=== PATIENT | male | born 1940 | race Two or more races ===

== ENCOUNTER 2025-07-25 15:25 | Inpatient (IN) | payer OTHER, MEDICAID ==
[~2025-07-25] VITALS: Ht 172.7 cm; Wt 53.5 kg
[2025-07-25 16:21] LABS: Hematocrit 37.4 % (41.0-53.0); Hemoglobin 13.1 g/dL (13.5-17.5); Mean Corpuscular Hemoglobin 34.2 pg (28.0-32.0); Mean Corpuscular Volume 97.6 fL (80.0-100.0); Nucleated Red Blood Cells % 0.1 %
[2025-07-25 16:26] LABS: Carbon Dioxide 30 mmol/L (20-31)
[2025-07-25 16:30] VITALS: PULSE 87; RESP 16; O2SAT 93
[2025-07-25 16:31] LABS: BUN/Creatinine Ratio 8.7 (10.0-20.0); Blood Urea Nitrogen 9 mg/dL (9-23); Glucose 103 mg/dL (74-106)
[2025-07-25 16:35] LABS: Anion Gap 5 (5-15); Calcium 8.7 mg/dL (8.7-10.4); Chloride 98 mmol/L (98-107); Potassium 3.5 mmol/L (3.5-5.1); Sodium 133 mmol/L (136-145)
--- NOTE | 2025-07-25 17:02 | DVH ---
CHEST RADIOGRAPH Indication: sob Technique: Single frontal view of the chest was obtained Comparison: None FINDINGS: Lines and Tubes: None Lungs: Consolidation in the right base may represent atelectasis or infiltrate. Pleura: No effusion. No pneumothorax. Cardiomediastinal contours: Unremarkable Bones: No acute osseous abnormality. IMPRESSION: 1. Consolidation right lower lobe may represent infiltrate or atelectasis. Suggest follow-up.
[2025-07-25] MEDS: SODIUM CHLORIDE 0.9% 1,000 ML IV ONE ×2 (18:04→20:14)
[2025-07-25] MEDS: VANCOMYCIN 1GM/250ML KIT 250 ML IV ONE (18:24)
--- NOTE | 2025-07-25 18:26 | ED.PDOC ---
History of Present Illness HPI Comments 85-year-old male is brought in by ambulance for chief complaint of shortness a breath x1 week. Denies any chest pain, cough, congestion, or further acute symptoms. Chief Complaint: Shortness of Breath Time Seen by MD: 15:50 Reviewed Notes: Nurses Notes, Detacher Notes, Medications, Allergies Allergies: Coded Allergies: NO KNOWN ALLERGIES (Unverified , 07/25/25) Information Source: Patient, Emergency Med Personnel Mode of Arrival: EMS Severity: Moderate Timing: Weeks Duration: Since onset Prehospital treatment: None Past Medical History PAST MEDICAL HISTORY: Cancer (Skin cancer), COPD, High Lipids Surgical History: Denies all surgeries Social History Smoker: Non-Smoker Alcohol: Denies ETOH Use Drugs: Denies Drug Use Lives In: Home All Other Systems: Reviewed and Negative (Comprehensive review of systems are negative unless otherwise stated in HPI) Physical Exam General Appearance: No Apparent Distress, Normal HEENT: Normal ENT Inspection, Pharynx Normal, TMs Normal Neck: Full Range of Motion, Non-Tender, Normal, Normal Inspection Respiratory: Chest Non-Tender, No Accessory Muscle Use, No Respiratory Distress, Other (Coarse breath sounds, crackles bilaterally) Cardiovascular: No Edema, No JVD, No Murmur, No Gallop, Normal Peripheral Pulses, Regular Rate/Rhythm Breast Exam: Deferred Gastrointestinal: No Organomegaly, Non Tender, No Pulsatile Mass, Normal Bowel Sounds, Soft Genitalia: Deferred Pelvic: Deferred Rectal: Deferred Extremities: No calf tenderness, Normal capillary refill, Normal inspection, Normal range of motion, Non-tender, No pedal edema Musculoskeletal : Apperance: Normal Neurologic: Alert, project management intern II-XII nml as Tested, No Motor Deficits, Normal Affect, Normal Mood, No Sensory Deficits Cerebellar Function: Normal Reflexes: Normal Skin: Dry, Normal Color, Warm Lymphatic: No Adenopathy Was a procedure done? Was a procedure done?: No Differential Dx Considerations may include: Acute COPD exacerbation, URI, pneumonia, viral, MA, PE, among others X-Ray, Labs, Meds, VS Vital Signs Date Time Temp Pulse Resp B/P (MAP) Pulse Ox O2 Delivery O2 Flow Rate FiO2 07/25/25 19:30 98.9 100 23 127/66 (86) 91 98.9 07/25/25 16:30 99.5 87 16 122/72 (89) 93 99.5 07/25/25 16:30 87 16 93 Nasal Cannula* 3 32 07/25/25 16:10 97.5 102 26 105/68 97 97.5 Lab Test 07/25/25 19:06 07/25/25 17:55 07/25/25 17:05 07/25/25 16:02 Range/Units Troponin I High Sensitivity 17 18 19 </=54 ng/L Lactic Acid Level 1.3 0.4-2.0 mmol/L White Blood Count 9.4 4.4-10.8 10^3/uL Red Blood Count 3.83 L 4.5-5.90 10^6/uL Hemoglobin 13.1 L 13.5-17.5 g/dL Hematocrit 37.4 L 41.0-53.0 % Mean Corpuscular Volume 97.6 80.0-100.0 fL Mean Corpuscular Hemoglobin 34.2 H 28.0-32.0 pg Mean Corpuscular Hemoglobin Concent 35.1 32.0-36.0 g/dL Red Cell Distribution Width 14.4 H 11.8-14.3 % Platelet Count 248 140-450 10^3/uL Mean Platelet Volume 8.0 6.9-10.8 fL Neutrophils (%) (Auto) 83.9 H 37.0-80.0 % Lymphocytes (%) (Auto) 6.7 L 10.0-50.0 % Monocytes (%) (Auto) 8.7 0.0-12.0 % Eosinophils (%) (Auto) 0.2 0.0-7.0 % Basophils (%) (Auto) 0.5 0.0-2.0 % Neutrophils # (Auto) 7.9 1.6-8.6 10 ^3/uL Lymphocytes # (Auto) 0.6 0.4-5.4 10 ^3/uL Monocytes # (Auto) 0.8 0-1.3 10 ^3/uL Eosinophils # (Auto) 0 0-0.8 10 ^3/uL Basophils # (Auto) 0 0-0.2 10 ^3/uL Nucleated Red Blood Cells 0.1 % Sodium Level 133 L 136-145 mmol/L Potassium Level 3.5 3.5-5.1 mmol/L Chloride Level 98 98-107 mmol/L Carbon Dioxide Level 30 20-31 mmol/L Anion Gap 5 5-15 Blood Urea Nitrogen 9 9-23 mg/dL Creatinine 1.03 0.700-1.30 mg/dL Glomerular Filtration Rate Calc 71 >90 mL/min BUN/Creatinine Ratio 8.7 L 10.0-20.0 Serum Glucose 103 74-106 mg/dL Calcium Level 8.7 8.7-10.4 mg/dL B-Type Natriuretic Peptide 134.75 0-100 pg/mL Current Medications Medications (Trade) Dose Ordered Sig/Kristina Route Start Time Stop Time Status Last Admin Sodium Chloride 1,000 ml @ 1,000 mls/hr Q1H ONCE IV 07/25/25 17:45 07/25/25 18:44 DC 07/25/25 18:04 Cefepime HCl 50 ml @ 12.5 mls/hr ONCE ONCE IV 07/25/25 17:45 07/25/25 21:44 07/25/25 20:14 Vancomycin HCl 250 ml @ 250 mls/hr ONCE ONCE IV 07/25/25 17:45 07/25/25 18:44 DC 07/25/25 18:24 Sodium Chloride 1,000 ml @ 60 mls/hr [id number] IV 07/25/25 19:45 07/25/25 20:25 Acetaminophen/ Hydrocodone Bitart (Casselberry 5/325MG Tab) 1 tab Q4HP PRN PO 07/25/25 19:45 07/25/25 20:31 Time of 1ST Reevaluation: 16:20 Reevaluation 1ST: Unchanged Patient Education/Counseling: Diagnosis, Treatment Family Education/Counseling: No Family Present Additional Information Additional historians: EMS personnel Previous medical visits reviewed: None Additional imaging and studies ordered and reviewed: EKG, chest x-ray Labs ordered and reviewed: Blood culture, lactic acid reflux, EKG, troponin, BNP, CBC, BMP SEPSIS Sepsis Screen Date sepsis recognized/suspect: Jul 25, 2025 Time Sepsis recognized/suspect: 153 Recent Procedure: No On Antibiotic Therapy: No Respiratory Rate >20: Yes Heart Rate >90: Yes Temp<36 C (96.8 F) or >38.3 C: No SBP <90 or MAP <65 mmHG: No New Acute Mental Status Change: No Is the patient on CPAP, BIPAP,: No Physician Orders Chest Portable (07/25/25 15:53) Electrocardigram (07/25/25 15:53) Electrocardigram (07/25/25 16:53) Electrocardigram (07/25/25 18:53) Blood Culture (07/25/25 17:39) Cefepime 2gm/50ml Ns (Maxipime 2gm/50ml) (07/25/25 17:45) Amlodipine Tablet (Norvasc Tablet) (07/26/25 10:00) Tamsulosin Hydrochloride (Flomax) (07/26/25 18:00) Duloxetine Hcl Capsule (Cymbalta Capsule (07/26/25 10:00) Atorvastatin (Lipitor) (07/25/25 22:00) Azithromycin 500mg/ 250ml (Zithromax 50 (07/26/25 10:00) Allergies (07/25/25 19:40) Code Status (07/25/25 19:40) Sodium Chloride 0.9% (07/25/25 19:45) Oxygen Per Hour (07/25/25 19:40) Hydrocodone-Acet 5/325mg Tab (Casselberry 5/32 (07/25/25 19:45) Ondansetron Hcl (Zofran) (07/25/25 19:45) Docusate Sodium Capsule (Colace Capsule) (07/25/25 19:45) Fall Risk Precautions In Place QSHIFT (07/25/25 19:40) Complete Blood Count (07/26/25 04:00) Comprehensive Metabolic Panel (07/26/25 04:00) Cardiac Diet-2gna,Lofat,Lochol (07/26/25 Breakfast) Condition: Serious (07/25/25 19:40) Acetaminophen Tablet (Tylenol Tablet) (07/25/25 19:45) Maintain Bed Rest (07/25/25 19:40) Sequential Compression Device (07/25/25 ) Vital Signs Date Time Temp Pulse Resp B/P (MAP) Pulse Ox O2 Delivery O2 Flow Rate FiO2 07/25/25 19:30 98.9 100 23 127/66 (86) 91 98.9 07/25/25 16:30 99.5 87 16 122/72 (89) 93 99.5 07/25/25 16:30 87 16 93 Nasal Cannula* 3 32 07/25/25 16:10 97.5 102 26 105/68 97 97.5 Laboratory Tests Test 07/25/25 16:02 07/25/25 17:55 White Blood Count 9.4 10^3/uL (4.4-10.8) Lactic Acid Level 1.3 mmol/L (0.4-2.0) Medications Medications Dose Ordered Sig/Kristina Route Start Time Stop Time Status Last Admin Dose Admin Acetaminophen/ Hydrocodone Bitart 1 tab Q4HP PRN PO 07/25/25 19:45 07/25/25 20:31 Cefepime HCl 50 ml @ 12.5 mls/hr ONCE ONCE IV 07/25/25 17:45 07/25/25 21:44 07/25/25 20:14 Sodium Chloride 1,000 ml @ 60 mls/hr [id number] IV 07/25/25 19:45 07/25/25 20:25 Sodium Chloride 1,000 ml @ 1,000 mls/hr Q1H ONCE IV 07/25/25 17:45 07/25/25 18:44 DC 07/25/25 18:04 Vancomycin HCl 250 ml @ 250 mls/hr ONCE ONCE IV 07/25/25 17:45 07/25/25 18:44 DC 07/25/25 18:24 Departure 1 Departure Time of Disposition: 21:27 (Patient likely with a right lower lobe pneumonia. We will empirically cover patient with antibiotics. We will not give patient has full fluid bolus SC appears mildly volume overloaded. We will admit patient for further workup and expert consultation) Impression: Primary Impression: Right lower lobe pneumonia Additional Impressions: Acute dyspnea Suspected sepsis Disposition: ADMITTED INPATIENT Admit to: Tele Condition: Guarded Critical Care Note Critical Care Time?: Yes Critical care comment: Suspected sepsis Authorized and Performed by: Junaid Basilio MD Total critical care time: Approximately 39 minutes Due to a high probability of clinically significant, life threatening deterioration, the patient required my highest level of preparedness to intervene emergently and I personally spent this critical care time directly and personally managing the patient. This critical care time included obtaining a history; examining the patient; pulse oximetry; ordering and review of studies; arranging urgent treatment with development of a management plan; evaluation of patient's response to treatment; frequent reassessment; and, discussions with other providers. This critical care time was performed to assess and manage the high probability of imminent, life-threatening deterioration that could result in multi-organ failure. It was exclusive of separately billable procedures and treating other patients and teaching time. Please see my other sections and the rest of the note for further information on patient assessment and treatment. Stability Stability form required: No Heart Score Heart Score: Heart Score Response (Comments) Value History Moderate Suspicious 1 EKG Normal 0 Age <45 0 Risk Factors >3 or Hx ASHD 2 Troponin Normal limit 0 Total 3 I personally scribed for JUNAID BASILIO MD ([email or web address]) on 07/25/25 at 18:26. Electronically submitted by Solomon Douglass [email or web address]). JUNAID BASILIO MD Jul 25, 2025 18:26
[2025-07-25] MEDS ORDERED: DOCUSATE SOD 100 MG CAP PO PRN (19:45)
[2025-07-25] MEDS ORDERED: ONDANSETRON HCL 4 MG/2 ML VIAL IV PRN (19:45)
[2025-07-25] MEDS ORDERED: ACETAMINOPHEN 325 MG TAB PO PRN (19:45)
--- NOTE | 2025-07-25 19:47 | DVHHP2 ---
History of Present Illness Reason for Visit: COPD with acute exacerbation History of Present Illness The patient is a 85-year-old male with past medical history of skin cancer, COPD, depression, and hyperlipidemia who presented to [facility] ED with complaint of shortness of breaths for the past 1 week. Patient was seen and evaluated in the ED, laboratory data shows WBC 9.4, hemoglobin 13.1, hematocrit 37.4, platelets 248, sodium 133, potassium 3.5, BUN nine, creatinine 1.03, GFR 71, glucose 103, calcium 8.7, lactic acid 1.7, troponin 18, BNP 134.75, blood pressure 122/72, heart rate 87, temperature 99.5 F, O2 saturation 93% on oxygen. Chest x-ray revealing consolidation right lower lobe may represent infiltrate or atelectasis. Please see medication orders section in the computer. On my assessment, patient denied chest pain, no headache, dizziness, diaphoresis, currently on oxygen, no diarrhea, nausea, vomiting, fever, no chills. Patient was admitted for further evaluation and medical management. Past Medical History Cancer (Skin cancer), COPD, High Lipids Past Surgical History Denies all surgeries Family History Reviewed, noncontributory to the management of this case. Past Social History The patient lives at home, denies smoking, alcohol or illicit drugs abuse. Review of Systems Constitutional: Yes: Weakness; No: Fever, Chills, Sweats, Malaise, Other Eyes: No: Pain, Vision change, Conjunctivae inflammation, Eyelid inflammation, Other, Redness ENT: No: Ear pain, Ear discharge, Nose pain, Nose discharge, Nose congestion, Mouth pain, Mouth swelling, Throat pain, Throat swelling, Other Respiratory: Shortness of breath, Other (SOB at rest); No: Cough, Dry, SOB with excertion, Wheezing, Hemoptysis, Pleuritic Pain, Sputum, Wheezing Cardiovascular: No: Chest Pain, Palpitations, Orthopnea, Paroxysmal Noc. Dyspnea, Edema, Lt Headedness, Other Gastrointestinal: No: Nausea, Vomiting, Abdominal Pain, Diarrhea, Constipation, Melena, Hematochezia, Other Genitourinary: No Dysuria, No Frequency, No Incontinence, No Hematuria, No Retention, No Other Musculoskeletal: No: other, neck pain, shoulder pain, arm pain, back pain, hand pain, leg pain, foot pain Neurological: No: Weakness, Numbness, Incoordination, Change in speech, Confusion, Seizures, Other Allergies: Coded Allergies: NO KNOWN ALLERGIES (Unverified , 07/25/25) Medications Current Medications Medications Dose Ordered Sig/Kristina Route Start Time Stop Time Status Last Admin Dose Admin Amlodipine Besylate 5 mg DAILY PO 07/26/25 10:00 UNV Tamsulosin HCl 0.4 mg QPM PO 07/26/25 18:00 UNV Duloxetine HCl 60 mg DAILY PO 07/26/25 10:00 UNV Atorvastatin Calcium 20 mg HS PO 07/25/25 22:00 UNV Azithromycin 250 ml @ 125 mls/hr DAILY IV 07/26/25 10:00 UNV Sodium Chloride 1,000 ml @ 60 mls/hr [id number] IV 07/25/25 19:45 UNV Acetaminophen/ Hydrocodone Bitart 1 tab Q4HP PRN PO 07/25/25 19:45 UNV Ondansetron HCl 4 mg Q4HP PRN IV 07/25/25 19:45 UNV Docusate Sodium 100 mg BIDPRN PRN PO 07/25/25 19:45 UNV Acetaminophen 500 mg Q6HP PRN PO 07/25/25 19:45 UNV Exam Vital Signs Vital Signs Date Time Temp Pulse Resp B/P (MAP) Pulse Ox O2 Delivery O2 Flow Rate FiO2 07/25/25 16:30 99.5 87 16 122/72 (89) 93 99.5 07/25/25 16:30 Nasal Cannula* 3 32 General Appearance: Alert, Oriented X3, Cooperative, No acute distress HEENT: Atraumatic, PERRLA, EOMI, Mucous membr. moist/pink Respiratory: Normal air movement, Other (Diminished breath sounds) Cardiovascular: Regular rate, Normal S1, Normal S2, No murmurs Abdominal: Normal bowel sounds, Soft, No tenderness, No hepatospenomegaly, No masses Extremities: No clubbing, No cyanosis, No edema, Normal pulses, No tenderness/swelling Skin: No rashes, No significant lesion Neuro: Normal speech, Normal tone, Sensation intact, Cranial nerves 3-12 NL, Reflexes 2+, Other (Generalized weakness) Psych/Mental Status: Mental status NL, Mood NL Labs/Xrays Labs Test 07/25/25 19:06 07/25/25 17:55 07/25/25 16:02 Range/Units Lactic Acid Level 1.3 0.4-2.0 mmol/L White Blood Count 9.4 4.4-10.8 10^3/uL Red Blood Count 3.83 L 4.5-5.90 10^6/uL Hemoglobin 13.1 L 13.5-17.5 g/dL Hematocrit 37.4 L 41.0-53.0 % Mean Corpuscular Volume 97.6 80.0-100.0 fL Mean Corpuscular Hemoglobin 34.2 H 28.0-32.0 pg Mean Corpuscular Hemoglobin Concent 35.1 32.0-36.0 g/dL Red Cell Distribution Width 14.4 H 11.8-14.3 % Platelet Count 248 140-450 10^3/uL Mean Platelet Volume 8.0 6.9-10.8 fL Neutrophils (%) (Auto) 83.9 H 37.0-80.0 % Lymphocytes (%) (Auto) 6.7 L 10.0-50.0 % Monocytes (%) (Auto) 8.7 0.0-12.0 % Eosinophils (%) (Auto) 0.2 0.0-7.0 % Basophils (%) (Auto) 0.5 0.0-2.0 % Neutrophils # (Auto) 7.9 1.6-8.6 10 ^3/uL Lymphocytes # (Auto) 0.6 0.4-5.4 10 ^3/uL Monocytes # (Auto) 0.8 0-1.3 10 ^3/uL Eosinophils # (Auto) 0 0-0.8 10 ^3/uL Basophils # (Auto) 0 0-0.2 10 ^3/uL Nucleated Red Blood Cells 0.1 % Sodium Level 133 L 136-145 mmol/L Potassium Level 3.5 3.5-5.1 mmol/L Chloride Level 98 98-107 mmol/L Carbon Dioxide Level 30 20-31 mmol/L Anion Gap 5 5-15 Blood Urea Nitrogen 9 9-23 mg/dL Creatinine 1.03 0.700-1.30 mg/dL Glomerular Filtration Rate Calc 71 >90 mL/min BUN/Creatinine Ratio 8.7 L 10.0-20.0 Serum Glucose 103 74-106 mg/dL Calcium Level 8.7 8.7-10.4 mg/dL B-Type Natriuretic Peptide 134.75 0-100 pg/mL PATIENT: AUGUSTINA PENN ACCT: [id number] UNIT: [id number] : 1940 LOC: ER ROOM / BED: / AGE / SEX: 85 / M ADM STATUS: REG ER SERVICE 1553 ORDERING PHYSICIAN: JUNAID GARCIA MD PROCEDURE(s): CXRP - CHEST PORTABLE REASON: sob ORDER NUMBER(s): [id number], ACCESSION NUMBER(s): [id number] CHEST RADIOGRAPH Indication: sob Technique: Single frontal view of the chest was obtained Comparison: None FINDINGS: Lines and Tubes: None Lungs: Consolidation in the right base may represent atelectasis or infiltrate. Pleura: No effusion. No pneumothorax. Cardiomediastinal contours: Unremarkable Bones: No acute osseous abnormality. IMPRESSION: 1. Consolidation right lower lobe may represent infiltrate or atelectasis. Suggest follow-up. SEPSIS Sepsis Screen Date sepsis recognized/suspect: Jul 25, 2025 Time Sepsis recognized/suspect: 1529 Recent Procedure: No On Antibiotic Therapy: No Respiratory Rate >20: Yes Heart Rate >90: Yes Temp<36 C (96.8 F) or >38.3 C: No SBP <90 or MAP <65 mmHG: No New Acute Mental Status Change: No Is the patient on CPAP, BIPAP,: No Physician Orders Chest Portable (07/25/25 15:53) Electrocardigram (07/25/25 15:53) Troponin-I Hs (07/25/25 18:53) Electrocardigram (07/25/25 16:53) Electrocardigram (07/25/25 18:53) Blood Culture (07/25/25 17:39) Cefepime 2gm/50ml Ns (Maxipime 2gm/50ml) (07/25/25 17:45) Sodium Chloride 0.9% (07/25/25 19:15) Amlodipine Tablet (Norvasc Tablet) (07/26/25 10:00) Tamsulosin Hydrochloride (Flomax) (07/26/25 18:00) Duloxetine Hcl Capsule (Cymbalta Capsule (07/26/25 10:00) Atorvastatin (Lipitor) (07/25/25 22:00) Azithromycin 500mg/ 250ml (Zithromax 50 (07/26/25 10:00) Allergies (07/25/25 19:40) Code Status (07/25/25 19:40) Sodium Chloride 0.9% (07/25/25 19:45) Oxygen Per Hour (07/25/25 19:40) Hydrocodone-Acet 5/325mg Tab (Haskell 5/32 (07/25/25 19:45) Ondansetron Hcl (Zofran) (07/25/25 19:45) Docusate Sodium Capsule (Colace Capsule) (07/25/25 19:45) Fall Risk Precautions In Place QSHIFT (07/25/25 19:40) Complete Blood Count (07/26/25 04:00) Comprehensive Metabolic Panel (07/26/25 04:00) Cardiac Diet-2gna,Lofat,Lochol (07/26/25 Breakfast) Condition: Serious (07/25/25 19:40) Acetaminophen Tablet (Tylenol Tablet) (07/25/25 19:45) Maintain Bed Rest (07/25/25 19:40) Sequential Compression Device (07/25/25 ) Vital Signs Date Time Temp Pulse Resp B/P (MAP) Pulse Ox O2 Delivery O2 Flow Rate FiO2 07/25/25 16:30 99.5 87 16 122/72 (89) 93 99.5 07/25/25 16:30 87 16 93 Nasal Cannula* 3 32 07/25/25 16:10 97.5 102 26 105/68 97 97.5 Laboratory Tests Test 07/25/25 16:02 07/25/25 17:55 White Blood Count 9.4 10^3/uL (4.4-10.8) Lactic Acid Level 1.3 mmol/L (0.4-2.0) Medications Medications Dose Ordered Sig/Kristina Route Start Time Stop Time Status Last Admin Dose Admin Sodium Chloride 1,000 ml @ 1,000 mls/hr Q1H ONCE IV 07/25/25 17:45 07/25/25 18:44 DC 07/25/25 18:04 1,000 MLS/HR Vancomycin HCl 250 ml @ 250 mls/hr ONCE ONCE IV 07/25/25 17:45 07/25/25 18:44 DC 07/25/25 18:24 250 MLS/HR Assessment/Plan Assessment/Plan Acute respiratory distress Acute dyspnea Hyponatremia Pneumonia, unspecified organism Generalized weakness Plan 1. Admit to telemetry unit 2. Breathing treatment 3. Pain control management 4. IV antibiotic management 5. Management of fluids and electrolytes 6. Consultation for hospitalist 7. Diagnostic test chest x-ray 8. DVT prophylaxis on SCDS 9. Repeat labs CBC, CMP in a.m. 10. Home medication reviewed and reconciled 11. Continue with current medical management 12. Treatment plan discussed with patient and RN. Patient verbalized understanding. Plan discussed with: Patient, Other (RN) My Orders Orders - RERE MARTEL DNP Procedure Category Date Status Time Amlodipine Tablet PHA 07/26/25 Logged (Norvasc Tablet) 10:00 Tamsulosin PHA 07/26/25 Logged Hydrochloride (Flomax) 18:00 Duloxetine Hcl PHA 07/26/25 Logged Capsule (Cymbalta 10:00 Atorvastatin (Lipitor) PHA 07/25/25 Logged 22:00 Azithromycin 500mg/ PHA 07/26/25 Logged 250ml (Zithromax 50 10:00 Allergies EDELMIRA 07/25/25 In Process 19:40 Code Status CODE 07/25/25 Transmitted 19:40 Sodium Chloride 0.9% PHA 07/25/25 Logged 19:45 Oxygen Per Hour RT 07/25/25 Transmitted 19:40 Hydrocodone-Acet PHA 07/25/25 Logged 5/325mg Tab (Haskell 19:45 Ondansetron Hcl PHA 07/25/25 Logged (Zofran) 19:45 Docusate Sodium PHA 07/25/25 Logged Capsule (Colace 19:45 Fall Risk Precautions EDELMIRA 07/25/[address] 19:40 Complete Blood Count LAB 07/26/25 Verified 04:00 Comprehensive LAB 07/26/25 Verified Metabolic Panel 04:00 Cardiac DIET 07/26/25 Transmitted Diet-2gna,Lofat,Lochol Breakfast Condition: Serious EDELMIRA 07/25/25 In Process 19:40 Acetaminophen Tablet PHA 07/25/25 Logged (Tylenol Tablet) 19:45 Maintain Bed Rest EDELMIRA 07/25/25 In Process 19:40 Sequential EDELMIRA 07/25/25 In Process Compression Device Problem List: (1) Acute respiratory distress (2) Acute dyspnea (3) Hyponatremia (4) Pneumonia, unspecified organism (5) Generalized weakness Date of Service: Jul 25, 2025 Billing Provider: RERE MARTEL DNP Common Visit Codes: [id number] INP/OBS CARE (HIGH) RERE MARTEL DNP Jul 25, 2025 19:47
[2025-07-25] MEDS ORDERED: MORPHINE SULFATE INJ 2 MG/ml SYRG IV PRN (20:00)
[2025-07-25] MEDS ORDERED: NITROGLYCERIN 0.4 MG SL TAB SL PRN (20:00)
[2025-07-25] MEDS: CEFEPIME 2GM/50ML NS 50 ML IV ONE (20:14)
[2025-07-25] MEDS: SODIUM CHLORIDE 0.9% 1,000 ML IV SCH (20:25)
[2025-07-25] MEDS: HYDROcodone-ACET 5/325MG TAB PO PRN (20:31)
[2025-07-25] MEDS: ATORVASTATIN 20 MG TAB PO SCH (22:22)
[2025-07-26 00:32] VITALS: BP 131/56; PULSE 111; RESP 16; O2SAT 94
[2025-07-26] MEDS ORDERED: DULO1CAP6 PO (01:11)
[2025-07-26] MEDS ORDERED: TAMS0.4C39 PO (01:11)
[2025-07-26] MEDS ORDERED: ATOR20TA50 PO (01:11)
[2025-07-26] MEDS ORDERED: AMLO1TAB22 PO (01:11)
[2025-07-26] MEDS ORDERED: HYDR-4902 PO (01:11)
[2025-07-26 02:00] VITALS: BP 146/74; PULSE 104; RESP 23; O2SAT 98
[2025-07-26 03:06] LABS: Hematocrit 35.4 % (41.0-53.0); Hemoglobin 12.3 g/dL (13.5-17.5); Mean Corpuscular Hemoglobin 35.3 pg (28.0-32.0); Mean Corpuscular Volume 101.1 fL (80.0-100.0); Nucleated Red Blood Cells % 0.2 %
[2025-07-26 03:20] LABS: Alanine Aminotransferase 11 U/L (7-40); Albumin 3.5 g/dL (3.2-4.8); Alkaline Phosphatase 102 U/L (46-116); Anion Gap 7 (5-15); BUN/Creatinine Ratio 9.4 (10.0-20.0); Blood Urea Nitrogen 9 mg/dL (9-23); Carbon Dioxide 25 mmol/L (20-31); Chloride 101 mmol/L (98-107); Glucose 102 mg/dL (74-106); Potassium 3.5 mmol/L (3.5-5.1); Total Protein 6.1 g/dL (5.7-8.2)
[2025-07-26 03:21] LABS: Bilirubin, Total 0.8 mg/dL (0.2-1.0)
[2025-07-26 03:24] LABS: Calcium 8.4 mg/dL (8.7-10.4); Sodium 133 mmol/L (136-145)
[2025-07-26 04:00] VITALS: BP 120/75; PULSE 112; RESP 17; O2SAT 91
[2025-07-26 06:41] VITALS: BP 139/69; PULSE 98; RESP 20; O2SAT 94
[2025-07-26 08:00] VITALS: BP 141/74; PULSE 94; RESP 22; TEMP 97.8; O2SAT 92
[2025-07-26] MEDS ORDERED: AZITHROMYCIN 500MG/ 250ML 250 ML IV SCH (10:00)
--- NOTE | 2025-07-26 13:03 | DVHINCON2 ---
Date Seen: Jul 25, 2025 [facility] Reason for Consultation Assuming care of the patient from today onwards History of Present Illness 85-year-old male with a known history of skin cancer, COPD, initially presented to hospital with the increasing shortness of breaths found to have right-sided pneumonia. Patient was recommended to be admitted. Patient does have known history of COPD as well as skin cancer. Past Medical History COPD Skin cancer Allergies: Coded Allergies: NO KNOWN ALLERGIES (Unverified , 07/25/25) Home Meds Reported Medications Hydrocodone-Acetaminophen (Hydrocodone Bitartrate/AC 5-325 mg) 1 Tab Tab, 1 TAB PO, TAB 07/26/25 Duloxetine HCl (Duloxetine HCl) 60 Mg Cap, 1 CAP PO DAILY 07/26/25 Tamsulosin Hcl (Tamsulosin Hcl) 0.4 Mg Cap, 1 CAP PO 07/26/25 Atorvastatin Calcium (ATORVASTATIN CALCIUM) 20 Mg Tab, 1 TAB PO 07/26/25 Amlodipine Besylate (Amlodipine Besylate) 5 Mg Tab, 1 TAB PO DAILY 07/26/25 Current Medications Current Medications Medications (Trade) Dose Ordered Sig/Kristina Route PRN Reason Start Time Stop Time Status Last Admin Amlodipine Besylate (Norvasc Tablet) 5 mg DAILY PO 07/26/25 10:00 07/26/25 09:56 DC Tamsulosin HCl (Flomax) 0.4 mg QPM PO 07/26/25 18:00 07/26/25 09:56 DC Duloxetine HCl (Cymbalta Capsule) 60 mg DAILY PO 07/26/25 10:00 07/26/25 09:56 DC Atorvastatin Calcium (Lipitor) 20 mg HS PO 07/25/25 22:00 07/26/25 09:56 DC 07/25/25 22:22 Azithromycin 250 ml @ 125 mls/hr DAILY IV 07/26/25 10:00 07/26/25 09:56 DC Sodium Chloride 1,000 ml @ 60 mls/hr [id number] IV 07/25/25 19:45 07/26/25 09:56 DC 07/25/25 20:25 Acetaminophen/ Hydrocodone Bitart ([place] 5/325MG Tab) 1 tab Q4HP PRN PO MODERATE PAIN (4-6 PAIN SCALE) 07/25/25 19:45 07/26/25 09:56 DC 07/26/25 03:39 Ondansetron HCl (Zofran) 4 mg Q4HP PRN IV NAUSEA / VOMITING 07/25/25 19:45 07/26/25 09:56 DC Docusate Sodium (Colace Capsule) 100 mg BIDPRN PRN PO FOR CONSTIPATION 07/25/25 19:45 07/26/25 09:56 DC Acetaminophen (Tylenol Tablet) 500 mg Q6HP PRN PO PAIN SCALE 1-3 OR TEMP>100.4 07/25/25 19:45 07/26/25 09:56 DC Nitroglycerin (Ntrostat Sublingual) 0.4 mg Q5MINP PRN SL FOR CHEST PAIN 07/25/25 20:00 07/26/25 09:56 DC Morphine Sulfate 2 mg Q30M PRN IV FOR CHEST PAIN 07/25/25 20:00 07/26/25 09:56 DC Vital Signs Vital Signs Date Time Temp Pulse Resp B/P (MAP) Pulse Ox O2 Delivery O2 Flow Rate FiO2 07/26/25 08:00 97.8 94 22 141/74 (96) 92 97.8 07/26/25 08:00 Nasal Cannula* 3 32 Labs/Diagnostic Data Labs Test 07/26/25 02:42 07/25/25 19:06 07/25/25 17:55 07/25/25 16:02 Range/Units White Blood Count 8.1 4.4-10.8 10^3/uL Red Blood Count 3.50 L 4.5-5.90 10^6/uL Hemoglobin 12.3 L 13.5-17.5 g/dL Hematocrit 35.4 L 41.0-53.0 % Mean Corpuscular Volume 101.1 H 80.0-100.0 fL Mean Corpuscular Hemoglobin 35.3 H 28.0-32.0 pg Mean Corpuscular Hemoglobin Concent 34.9 32.0-36.0 g/dL Red Cell Distribution Width 14.5 H 11.8-14.3 % Platelet Count 221 140-450 10^3/uL Mean Platelet Volume 7.9 6.9-10.8 fL Neutrophils (%) (Auto) 77.4 37.0-80.0 % Lymphocytes (%) (Auto) 9.0 L 10.0-50.0 % Monocytes (%) (Auto) 12.9 H 0.0-12.0 % Eosinophils (%) (Auto) 0.4 0.0-7.0 % Basophils (%) (Auto) 0.3 0.0-2.0 % Neutrophils # (Auto) 6.3 1.6-8.6 10 ^3/uL Lymphocytes # (Auto) 0.7 0.4-5.4 10 ^3/uL Monocytes # (Auto) 1.1 0-1.3 10 ^3/uL Eosinophils # (Auto) 0 0-0.8 10 ^3/uL Basophils # (Auto) 0 0-0.2 10 ^3/uL Nucleated Red Blood Cells 0.2 % Sodium Level 133 L 136-145 mmol/L Potassium Level 3.5 3.5-5.1 mmol/L Chloride Level 101 98-107 mmol/L Carbon Dioxide Level 25 20-31 mmol/L Anion Gap 7 5-15 Blood Urea Nitrogen 9 9-23 mg/dL Creatinine 0.96 0.700-1.30 mg/dL Glomerular Filtration Rate Calc 77 >90 mL/min BUN/Creatinine Ratio 9.4 L 10.0-20.0 Serum Glucose 102 74-106 mg/dL Calcium Level 8.4 L 8.7-10.4 mg/dL Total Bilirubin 0.8 0.2-1.0 mg/dL Aspartate Amino Transferase (AST) 20 13-40 U/L Alanine Aminotransferase (ALT) 11 7-40 U/L Alkaline Phosphatase 102 46-116 U/L Total Protein 6.1 5.7-8.2 g/dL Albumin 3.5 3.2-4.8 g/dL Troponin I High Sensitivity 17 </=54 ng/L Lactic Acid Level 1.3 0.4-2.0 mmol/L B-Type Natriuretic Peptide 134.75 0-100 pg/mL Assessment 85-year-old male with a known history of skin cancer, COPD presented to the hospital with the increasing shortness a breath found to have 1. Acute hypoxic respiratory failure for suspected secondary to right-sided pneumonia 2. Right-sided pneumonia 3. COPD 4. Skin cancer 5. Hyponatremia -IV antibiotics, O2 supplementation, med nebs, plan of care discussed with the ED nurse. Problems(with codes): (1) Pneumonia, unspecified organism (2) Hyponatremia (3) Right lower lobe pneumonia Plan discussed with: Other Date of Service: Jul 25, 2025 Billing Provider: LIVAN SANTANA MD Common Visit Codes: NOT BILLABLE LIVAN SANTANA MD Jul 26, 2025 13:03
--- NOTE | 2025-07-26 13:05 | DVHDS2 ---
Discharge Summary Date of Admission Jul 25, 2025 at 19:46 Date of Discharge: Jul 26, 2025 Labs/Diagnostic Data: Laboratory Results Test 07/26/25 02:42 07/25/25 19:06 07/25/25 17:55 07/25/25 16:02 White Blood Count 8.1 10^3/uL (4.4-10.8) Red Blood Count 3.50 10^6/uL (4.5-5.90) Hemoglobin 12.3 g/dL (13.5-17.5) Hematocrit 35.4 % (41.0-53.0) Mean Corpuscular Volume 101.1 fL (80.0-100.0) Mean Corpuscular Hemoglobin 35.3 pg (28.0-32.0) Mean Corpuscular Hemoglobin Concent 34.9 g/dL (32.0-36.0) Red Cell Distribution Width 14.5 % (11.8-14.3) Platelet Count 221 10^3/uL (140-450) Mean Platelet Volume 7.9 fL (6.9-10.8) Neutrophils (%) (Auto) 77.4 % (37.0-80.0) Lymphocytes (%) (Auto) 9.0 % (10.0-50.0) Monocytes (%) (Auto) 12.9 % (0.0-12.0) Eosinophils (%) (Auto) 0.4 % (0.0-7.0) Basophils (%) (Auto) 0.3 % (0.0-2.0) Neutrophils # (Auto) 6.3 10 ^3/uL (1.6-8.6) Lymphocytes # (Auto) 0.7 10 ^3/uL (0.4-5.4) Monocytes # (Auto) 1.1 10 ^3/uL (0-1.3) Eosinophils # (Auto) 0 10 ^3/uL (0-0.8) Basophils # (Auto) 0 10 ^3/uL (0-0.2) Nucleated Red Blood Cells 0.2 % Sodium Level 133 mmol/L (136-145) Potassium Level 3.5 mmol/L (3.5-5.1) Chloride Level 101 mmol/L (98-107) Carbon Dioxide Level 25 mmol/L (20-31) Anion Gap 7 (5-15) Blood Urea Nitrogen 9 mg/dL (9-23) Creatinine 0.96 mg/dL (0.700-1.30) Glomerular Filtration Rate Calc 77 mL/min (>90) BUN/Creatinine Ratio 9.4 (10.0-20.0) Serum Glucose 102 mg/dL (74-106) Calcium Level 8.4 mg/dL (8.7-10.4) Total Bilirubin 0.8 mg/dL (0.2-1.0) Aspartate Amino Transferase (AST) 20 U/L (13-40) Alanine Aminotransferase (ALT) 11 U/L (7-40) Alkaline Phosphatase 102 U/L (46-116) Total Protein 6.1 g/dL (5.7-8.2) Albumin 3.5 g/dL (3.2-4.8) Troponin I High Sensitivity 17 ng/L (</=54) Lactic Acid Level 1.3 mmol/L (0.4-2.0) B-Type Natriuretic Peptide 134.75 pg/mL (0-100) Other Laboratory Tests 07/26/25 02:42 Brief Hx & Hospital Course: 85-year-old male with a known history of skin cancer, COPD presented to the hospital with the increasing shortness a breath found to have acute hypoxic respiratory failure secondary to right-sided pneumonia. Patient was started on O2 supplementation IV antibiotics. Condition at Discharge: Undetermined Final Diagnosis/Problems List Shortness of breaths Right-sided pneumonia COPD Patient left against medical advice Discharge Disposition: AMA SNF Discharge Will this Physician continue t: No Discharge Instruct/Medications Scheduled Amlodipine Besylate (Amlodipine Besylate), 1 TAB PO DAILY, (Reported) Duloxetine HCl (Duloxetine HCl), 1 CAP PO DAILY, (Reported) Miscellaneous Medications Atorvastatin Calcium (Atorvastatin Calcium), 1 TAB PO, (Reported) Hydrocodone-Acetaminophen (Hydrocodone Bitartrate/AC 5-325 mg), 1 TAB PO, (Reported) Tamsulosin Hcl (Tamsulosin Hcl), 1 CAP PO, (Reported) Discharge Statement: "Patient was advised to return to the ER or call 911 if any headaches, dizziness, shortness of breath, chest pain, abdominal pain, bleeding, fevers, or worsening of medical condition. Patient was counseled about treatment plan, medications, possible side effects, patientverbalized understanding. All questions were answered to the best of my ability. This discharge took greater then 30 minutes in planning, reviewing documentation, counseling the patient, and discussing with other team members." ASSESSMENT ASSESSMENT Assessment Date of Service: Jul 26, 2025 Billing Provider: LIVAN SANTANA MD Common Visit Codes: NOT BILLABLE LIVAN SANTANA MD Jul 26, 2025 13:05
[2025-07-26] MEDS ORDERED: TAMSULOSIN HYDROCHLORIDE 0.4 MG CAP PO SCH (18:00)
== END 2025-07-26 09:53 | disposition left against medical advice (07) | DRG 177 ==
LOC: ER 15:25 → EDBD 15:25 → OVERFLOW 19:46
PROVIDERS: ADMIT Nurse Practitioner Family; ATTEND Nurse Practitioner Family
DX: J15.69 Pneumonia due to other Gram-negative bacteria (principal); J96.01 Acute respiratory failure with hypoxia; J44.0 Chronic obstructive pulmonary disease with (acute) lower respiratory infection; J15.9 Unspecified bacterial pneumonia; F32.A Depression, unspecified; E87.1 Hypo-osmolality and hyponatremia; Z53.29 Procedure and treatment not carried out because of patient's decision for other reasons; E78.5 Hyperlipidemia, unspecified; Z85.828 Personal history of other malignant neoplasm of skin; Z79.899 Other long term (current) drug therapy; Z79.02 Long term (current) use of antithrombotics/antiplatelets
CPT/HCPCS: 36415; 71045; 80048; 80053; 83605; 83880; 84484; 85025; 87040; 96365; 99291; G0378; J0692